=== PATIENT | male | born 1990 | race Caucasian/White ===

== ENCOUNTER 2019-04-13 01:41 | Emergency (ER) | payer SELFPAY ==
[2019-04-13 01:41] VITALS: BP 119/96
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
== END 2019-04-13 01:44 ==
LOC: ER 01:42
DX: F10.120 Alcohol abuse with intoxication, uncomplicated (principal)